=== PATIENT | female | born 1990 | race African-American/Black ===

== ENCOUNTER 2018-09-27 10:40 | Emergency (ER) | payer BC ==
--- NOTE | 2018-09-27 11:26 | EDM.PDOC ---
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 Patient reports that she's been experiencing frequent yeast infections for several years. Last treated with Diflucan several months ago by her primary care provider. She states that Saturday she started experiencing symptoms of vaginal itching and discharge. She's tried Monistat but this does not alleviate her symptoms. She has noticed that she gets yeast infections during her menstrual cycle. Reports she started her menstrual cycle a few days ago. She denies any fevers, chills, nausea, vomiting, abdominal pain, dysuria or hematuria. Primary care provider is Jenna Keyes. She reports she has seen Jenna for this in the past was encouraged to follow up with OB but she has not done so thus far. - Related Data Allergies Allergy/AdvReac Type Severity Reaction Status Date / Time No Known Allergies Allergy Verified 09/27/18 10:49 Home Meds: Home Meds metroNIDAZOLE [Flagyl] 500 mg PO Q12H #14 tab 09/27/18 [Rx] Past Medical History - Past Health History Medical/Surgical History: Denies Medical/Surgical History Social & Family History - Tobacco Use Smoking Status *Q: Never Smoker - Caffeine Use Caffeine Use: Reports: None ED ROS GENERAL - Review of Systems Review Of Systems: See Below Constitutional: Denies: Fever, Chills GI/Abdominal: Denies: Abdominal Pain, Nausea, Vomiting : Reports: Other (reports vaginal pruritus and discharge ). Denies: Dysuria ED EXAM, RENAL/ - Physical Exam Exam: See Below Exam Limited By: No Limitations General Appearance: Alert, WD/WN, No Apparent Distress Respiratory/Chest: No Respiratory Distress, Lungs Clear Cardiovascular: Normal Peripheral Pulses, Regular Rate, Rhythm GI/Abdominal: Normal Bowel Sounds, Soft, Non-Tender Neurological: Alert, Oriented, Normal Cognition Psychiatric: Normal Affect, Normal Mood Skin Exam: Warm, Dry, Normal Color Course - Vital Signs Last Recorded V/S: Last Vital Signs Temp 97.7 F 09/27/18 10:52 Pulse 99 09/27/18 10:52 Resp 14 09/27/18 10:52 BP 118/68 09/27/18 10:52 Pulse Ox 100 09/27/18 10:52 - Orders/Labs/Meds Orders: Active Orders 24 hr Category Date Time Status Blood Glucose Check, Bedside [RC] ONETIME Care 09/27/18 11:05 Active CULTURE URINE [RM] Stat Lab 09/27/18 11:25 Received Labs: Laboratory Tests 09/27/18 09/27/18 09/27/18 Range/Units 01:12 11:31 12:02 POC Glucose 113 H (70-105) mg/dL Urine Color Yellow (Yellow) Urine Appearance Clear (Clear) Urine pH 6.0 (5.0-8.0) Ur Specific [place] 1.015 (1.005-1.030) Urine Protein Negative (Negative) Urine Glucose (UA) Negative (Negative) Urine Ketones Negative (Negative) Urine Occult Blood 2+ H (Negative) Urine Nitrite Negative (Negative) Urine Bilirubin Negative (Negative) Urine Urobilinogen 0.2 (0.2-1.0) Ur Leukocyte Esterase Negative (Negative) Urine RBC 0-5 (0-5) /hpf Urine WBC 0-5 (0-5) /hpf Ur Epithelial Cells 5-10 H (0-5) /hpf Urine Bacteria Moderate H (FEW) /hpf Urine Mucus Few (FEW) /hpf C trachomatis DNA (PCR) Not detected N gonorrhoeae DNA (PCR) Not detected - Re-Assessments/Exams Free Text/Narrative Re-Assessment/Exam: 09/27/18 12:20 wet prep + for few clue cells, no yeast or trich. GC/chlamydia pending; will notify if +. Glucose is 113, patient is not a diabetic. Will discharge home with flagyl. Follow-up if not better. Discharge instructions as documented. Departure - Departure Time of Disposition: 12:26 Disposition: Home, Self-Care 01 Condition: Fair Clinical Impression: Bacterial vaginosis - Discharge Information *PRESCRIPTION DRUG MONITORING PROGRAM REVIEWED*: No *COPY OF PRESCRIPTION DRUG MONITORING REPORT IN PATIENT AMPARO: No Prescriptions: metroNIDAZOLE [Flagyl] 500 mg PO Q12H #14 tab Instructions: Bacterial Vaginosis, [id number] Referrals: Jenna Keyes PA-C [Primary Care Provider] - Forms: ED Department Discharge Additional Instructions: Take the flagyl as prescribed 1 cap PO bid x 7 days. Avoid alcohol while on this medication. Take with food. Recommend a probiotic, these are available OTC. Recommend Florajen or Culturell. Follow-up with Ob if symptoms do not improve in 10-14 days. The remainder of your test results will be available in the next few days. We will call you if these are positive, if you do not hear from us, assume your results are negative. Please return to the ER should your symptoms change or worsen. - My Orders Last 24 Hours: My Active Orders 09/27/18 11:05 Blood Glucose Check, Bedside [RC] ONETIME 09/27/18 11:25 CULTURE URINE [RM] Stat - Assessment/Plan Last 24 Hours: My Active Orders 09/27/18 11:05 Blood Glucose Check, Bedside [RC] ONETIME 09/27/18 11:25 CULTURE URINE [RM] Stat
[2018-09-27 13:38] LABS: C. TRACHOMATIS BY PCR NOT DETECTED; N. GONORRHOEAE BY PCR NOT DETECTED
== END 2018-09-27 12:36 | disposition home or self-care (01) ==
LOC: JD.ED 10:40
DX: N76.0 Acute vaginitis (principal)
CPT/HCPCS: 81001; 82962; 87086; 87210; 87491; 87591; 87808; 99283

== ENCOUNTER 2019-08-11 23:52 | Emergency (ER) | payer BC, OTHER ==
--- NOTE | 2019-08-12 00:19 | EDM.PDOC ---
ED HPI GENERAL MEDICAL PROBLEM - General Chief Complaint: Chest Pain Stated Complaint: CHEST TIGHTNESS AND DIZZY Time Seen by Provider: 08/12/19 00:11 - History of Present Illness INITIAL COMMENTS - FREE TEXT/NARRATIVE: 29-year-old female presents to the emergency room with chest pain and dizziness. This is been going on for couple of days she has not slept well she is very anxious. She is very concerned about what is going on in the world these days. There is nothing she can do to make the dizziness worse or the chest pain worse however at times she thinks she notices the dizziness more when she is walking around but but this is minimal. She is not having any other complaints no breathing difficulties no shortness of breath. She is not having any nausea vomiting or unusual gastrointestinal symptoms and denies other complaints at this time currently she is using once a week anti-yeast medication because of a chronic yeast infection and what sounds like betamethasone for her eczema. Chest Pain Score (Numeric/FACES): 6 - Related Data Allergies Allergy/AdvReac Type Severity Reaction Status Date / Time No Known Allergies Allergy Verified 08/12/19 00:10 Home Meds: Home Meds Fluconazole [Diflucan] 1 tab PO WEEKLY 08/12/19 [History] LORazepam [Ativan] 0.5 mg PO BEDTIME #5 tab 08/12/19 [Rx] Past Medical History - Past Health History Medical/Surgical History: Denies Medical/Surgical History Social & Family History - Caffeine Use Caffeine Use: Reports: None ED ROS GENERAL - Review of Systems Review Of Systems: See Below Constitutional: Reports: No Symptoms HEENT: Reports: No Symptoms Respiratory: Reports: No Symptoms Cardiovascular: Reports: No Symptoms Endocrine: Reports: No Symptoms GI/Abdominal: Reports: No Symptoms : Reports: No Symptoms Musculoskeletal: Reports: No Symptoms Skin: Reports: Other (She has chronic eczema this is not getting any worse) Neurological: Denies: Confusion, Headache, Numbness, Pre-Existing Deficit, Seizure, Syncope, Tingling, Trouble Speaking, Difficulty Walking, Weakness, Change in Speech, Gait Disturbance Psychiatric: Reports: Anxiety. Denies: Depression ED EXAM, GENERAL - Physical Exam Exam: See Below Exam Limited By: No Limitations General Appearance: Alert, No Apparent Distress Eye Exam: Bilateral Eye: Normal Inspection Ears: Normal External Exam, Normal Canal, Hearing Grossly Normal, Normal TMs Nose: Normal Inspection, Normal Mucosa Throat/Mouth: Normal Inspection, Normal Lips, Normal Teeth, Normal Gums, Normal Oropharynx, Normal Voice, No Airway Compromise Head: Atraumatic, Normocephalic Neck: Normal Inspection, Supple, Non-Tender, Full Range of Motion. No: Lymphadenopathy (L), Lymphadenopathy (R) Respiratory/Chest: No Respiratory Distress, Lungs Clear, Normal Breath Sounds Cardiovascular: Normal Peripheral Pulses, Regular Rate, Rhythm, No Edema GI/Abdominal: Normal Bowel Sounds, Soft, Non-Tender Back Exam: Normal Inspection, Full Range of Motion. No: CVA Tenderness (L), Paraspinal Tenderness EKG INTERPRETATION EKG Date: 08/12/19 Rhythm: NSR [place]: Normal P-Wave: Present QRS: Normal ST-T: Normal QT: Normal EKG Interpretation Comments: Normal EKG Course - Vital Signs Last Recorded V/S: Last Vital Signs Temp 36.6 C 08/12/19 00:05 Pulse 117 H 08/12/19 00:05 Resp 20 08/12/19 00:05 BP 150/99 H 08/12/19 00:05 Pulse Ox 100 08/12/19 00:05 - Orders/Labs/Meds Orders: Active Orders 24 hr Category Date Time Status EKG Documentation Completion [RC] STAT Care 08/12/19 00:19 Active LORazepam [Ativan] Med 08/12/19 00:36 Once 0.5 mg PO ONETIME ONE - Re-Assessments/Exams Free Text/Narrative Re-Assessment/Exam: 08/12/19 00:36 Earnestine the situation with the patient she is quite comfortable getting an EKG and follow looks well going home we will start her on a few Ativan 0.5 1 p.o. at bedtime if needed Departure - Departure Time of Disposition: 00:37 Disposition: Home, Self-Care 01 Clinical Impression: Anxiety - Discharge Information Referrals: PCP,None [Primary Care Provider] - Forms: ED Department Discharge Additional Instructions: To the emergency room with any questions problems or worsening symptoms. Follow-up in the clinic in 1 week. Use 1/2 tablet of the Ativan, or Lorazepam, at bedtime only if needed. Allow 12 hours after using this medication before driving or returning to work Sepsis Event Note - Evaluation Sepsis Screening Result: No Definite Risk - Focused Exam Vital Signs: Vital Signs Temp Pulse Resp BP Pulse Ox 08/12/19 00:05 36.6 C 117 H 20 150/99 H 100 Date Exam was Performed: 08/12/19 Time Exam was Performed: 00:36 - My Orders Last 24 Hours: My Active Orders 08/12/19 00:19 EKG Documentation Completion [RC] STAT 08/12/19 00:36 LORazepam [Ativan] 0.5 mg PO ONETIME ONE - Assessment/Plan Last 24 Hours: My Active Orders 08/12/19 00:19 EKG Documentation Completion [RC] STAT 08/12/19 00:36 LORazepam [Ativan] 0.5 mg PO ONETIME ONE
[2019-08-12] MEDS ORDERED: LORazepam 0.5 MG Tab PO ONE (00:36)
== END 2019-08-12 01:00 | disposition home or self-care (01) ==
LOC: JD.ED 23:52
DX: F41.9 Anxiety disorder, unspecified (principal); Z79.899 Other long term (current) drug therapy
CPT/HCPCS: 93005; 99284; A9270; 93010; 99283